=== PATIENT | male | born 1990 | race Two or more races ===

== ENCOUNTER 2016-12-13 10:15 | Emergency (ER) | payer OTHER ==
[~2016-12-13] VITALS: Ht 172.7 cm; Wt 74.8 kg
[2016-12-13 11:34] VITALS: BP 130/71
== END 2016-12-13 11:34 | disposition home or self-care (01) ==
LOC: ED 10:15
DX: S39.012A Strain of muscle, fascia and tendon of lower back, initial encounter (principal); H91.93 Unspecified hearing loss, bilateral; R03.0 Elevated blood-pressure reading, without diagnosis of hypertension; X58.XXXA Exposure to other specified factors, initial encounter; Y93.89 Activity, other specified; Y92.89 Other specified places as the place of occurrence of the external cause; Y99.8 Other external cause status
CPT/HCPCS: J1885